=== PATIENT | female | born 1960 | race Caucasian/White ===

== ENCOUNTER → 2023-02-21 16:39 | Outpatient (CLI) | payer MEDICARE, SELFPAY | PROVIDERS: PCP Physician Assistant; Visit Provider Physician Assistant | DX: L03.019 Cellulitis of unspecified finger (principal); Z86.14 Personal history of Methicillin resistant Staphylococcus aureus infection | CPT/HCPCS: 87070; 87075; 87077; 87147; 87186; 87205 ==

== ENCOUNTER → 2023-03-21 10:10 | Outpatient (CLI) | payer MEDICARE, SELFPAY ==
[2023-03-21 19:23] LABS: Add Manual Diff / Slide Review NO; Basophils Absolute Auto 100 /uL (0-100); Basophils Percent Auto 1.4 % (0-2); Eosinophils Absolute Auto 100 /uL (0-450); Eosinophils Percent Auto 2.7 % (2-4); Hematocrit 43.8 % (36-46); Hemoglobin 14.8 g/dL (12.0-16.0); Lymphocytes Absolute Auto 1200 /uL (1100-4500); Lymphocytes Percent Auto 25.6 % (25-40); Mean Corpuscular HGB Conc 33.9 % (30-36); Mean Corpuscular Hemoglobin 29.2 PG (26-34); Mean Corpuscular Volume 86.1 fL (80-100); Monocytes Absolute Auto 500 /uL (0-900); Monocytes Percent Auto 9.4 % (3-14); Neutrophils Absolute Auto 3000 /uL (1500-7000); Neutrophils Percent Auto 60.9 % (50-75); Platelet Count 249 X10^3/uL (150-400); Red Blood Cell Count 5.08 X10^6/uL (4.0-5.2); Red Cell Distribution Width 14.6 % (11.6-14.8); White Blood Cell Count 4.9 X10^3/uL (4.5-11.0)
[2023-03-21 20:11] LABS: Alanine Aminotransferase 17 IU/L (<35); Albumin 4.2 g/dL (3.5-5.0); Albumin Globulin Ratio 1.4 (1.0-2.8); Alkaline Phosphatase 86 U/L (38-126); Aspartate Aminotransferase 20 IU/L (14-36); BUN Creatinine Ratio 30.6 (6-22); Bilirubin Total 0.5 mg/dL (0.2-1.3); Blood Urea Nitrogen 22 mg/dL (7-17); Calcium 9.6 mg/dL (8.4-10.2); Carbon Dioxide 33 mmol/L (22-32); Chloride 99 mmol/L (98-107); Cholesterol 266 mg/dL (140-199); Estimated Glomerular Filt Rate > 60 mL/min (>60); Globulin 2.9 g/dL (1.7-4.1); Glucose 92 mg/dL (80-110); HDL Cholesterol 96 mg/dL (40-60); HEMOLYSIS < 15 (0-50); LDL Cholesterol Calculated 145 mg/dL (<100); Potassium 4.2 mmol/L (3.4-5.1); Sodium 138 mmol/L (137-145); Total Protein 7.1 g/dL (6.3-8.2); Triglycerides 123 mg/dL (35-150)
[2023-03-23 16:52] LABS: Hep C Virus Ab w/Reflex Quant NEGATIVE s/c (NEGATIVE)
== END ==
PROVIDERS: PCP Physician Assistant; Visit Provider Physician Assistant
DX: Z13.6 Encounter for screening for cardiovascular disorders (principal); R63.5 Abnormal weight gain; Z79.899 Other long term (current) drug therapy; Z11.59 Encounter for screening for other viral diseases; R53.83 Other fatigue; F41.9 Anxiety disorder, unspecified; F32.A Depression, unspecified
CPT/HCPCS: 80053; 80061; 84443; 85025; 86803

== ENCOUNTER 2023-05-05 11:04 | Day surgery (SDC) | payer MEDICARE, OTHER, SELFPAY ==
[2023-05-05 11:20] VITALS: BP 118/74; PULSE 76; RESP 18; TEMP 36.1; O2SAT 97; BMI 26.5
[2023-05-05] MEDS: ALBUTEROL/IPRATROPIUM 3 ML AMPUL INH (11:36)
[2023-05-05] MEDS: LACTATED RINGERS 1,000 ML 100 ML IV (11:36)
--- NOTE | 2023-05-05 12:04 | P.HP_ITS ---
History of Present Illness History of Present Illness Date Patient Seen: 05/05/23 Time Patient Seen: 12:04 Chief complaint: Colonoscopy Narrative: 62-year-old woman here for screening colonoscopy no previous endoscopy. No family history of intestinal malignancy. No abdominal concerns today. [facility] Medical History Atrophic vulvovaginitis Social History household members: spouse Smoking Status: Current every day smoker alcohol intake: current Meds Home Medications and Allergies Home Medications Medication Instructions Recorded Confirmed Type fluoxetine 20 mg capsule 20 mg PO DAILY #30 caps 03/28/23 05/05/23 Rx fluticasone fur. 200 mcg-umeclid 1 inh inhalation DAILY #60 ea 03/28/23 04/05/23 Rx 62.5 mcg-vilant 25 mcg inhalat.powder (Trelegy Ellipta) estradiol 0.01% (0.1 mg/gram) 1 g vaginal 3XW #42.5 grams 04/05/23 05/05/23 Rx vaginal cream (Estrace) albuterol sulfate 90 mcg/actuation 1 - 2 puff PO Q4-6H PRN for 04/17/23 Rx aerosol inhaler (Ventolin HFA) wheezing #18 grams sodium,potassium,mag sulfates 17.5 See Rx Instructions PO .COMPLEX 04/17/23 Rx gram-3.13 gram-1.6 gram oral soln #354 mL (Suprep Bowel Prep Kit) Allergies Allergy/AdvReac Type Severity Reaction Status Date / Time No Known Drug Allergies Allergy Verified 05/05/23 11:40 Exam Vital Signs (past 8 hours): - 05/05/23 11:20 Temperature 97 F L Pulse Rate 76 Respiratory Rate 18 Blood Pressure 118/74 Pulse Oximetry 97 Oxygen Delivery Method Room Air Oxygen Delivery Method Room Air Narrative Exam Narrative: General adult woman alert oriented no acute distress Chest nonlabored respiration Extremities warm well perfused Assessment & Plan Assessment & Plan narrative: The patient requires colorectal screening and colonoscopy is recommended. Technical details were discussed. Risks, benefits, alternatives explained. Risks including but not limited to myocardial infarction, aspiration, bleeding, pain, missed lesion, incomplete examination, need for further radiographic s tudies, colonic perforation, and need for major abdominal surgery were discussed. All questions were answered to their satisfaction, and they are in agreement with this plan.
--- NOTE | 2023-05-05 12:06 | P.OP.COLON_ITS ---
Operative Date/Time/Diagnoses Date of procedure: 05/05/23 Time of procedure: 12:06 Pre-op diagnosis: Colorectal screening Procedure & Clinicians Study performed: Colonoscopy Same procedure as scheduled: Yes Indications: Colorectal screening Surgeon: Jovan Kimball Procedure Notes Procedure in detail: The history and physical was performed/updated and the patient is ASA class is 2. The procedure was discussed in detail with the patient. Potential risks complications including infection, bleeding, missed diagnosis, perforation, need for surgery, and were explained. Their questions were answered and informed consent was obtained. Patient was brought to the procedure room and placed standard monitoring equipment. The patient's vital signs were monitored continuously throughout the entire procedure. Prior to starting time-out was performed. The patient was placed in the left lateral recumbent position. Procedural sedation was administered by anesthesia. Examination began with a thorough inspection of the perianal area there was no evidence of fissures, fistulae, external hemorrhoids or cutaneous malignancy. The colonoscopy scope was then placed into the anal canal. There was solid stool within the colon and the preparation was inadequat e for safe and accurate performance of the examination. The exam was terminated. Impression: Incomplete colonoscopy Post-procedure Plan for aftercare: Please contact the surgical office to schedule the procedure with an alternative prep Disposition: same day surgery
[2023-05-05 12:20] VITALS: BP 101/46; PULSE 76; RESP 20; TEMP 36.2; O2SAT 96
[2023-05-05 12:25] VITALS: BP 106/72; PULSE 81; RESP 16; O2SAT 98
[2023-05-05 12:42] VITALS: BP 111/74; PULSE 71; RESP 20; O2SAT 96
== END 2023-05-05 12:45 | disposition home or self-care (01) ==
PROVIDERS: Surgery; PCP Physician Assistant; Referring Provider Surgery; Visit Provider Surgery
PROC: 0DJD8ZZ Inspection of Lower Intestinal Tract, Via Natural or Artificial Opening Endoscopic (ICD-10-PCS; CPT 45378; principal; 2023-05-05 12:15)
DX: Z12.11 Encounter for screening for malignant neoplasm of colon (principal); Z53.09 Procedure and treatment not carried out because of other contraindication
CPT/HCPCS: G0121; J2704